=== PATIENT | female | born 1970 | race Caucasian/White ===

== ENCOUNTER 2016-11-20 23:56 | Emergency (ER) | payer OTHER ==
[2016-11-21 00:22] VITALS: BP 151/89; PULSE 70; TEMP 98.3; BMI 30.6
[2016-11-21] MEDS ORDERED: KETOROLAC TROMETHAMINE 60 MG/2 ML VIAL IM ONE (01:02)
[2016-11-21] MEDS ORDERED: KETOROLAC TROMETHAMINE 60 MG/2 ML VIAL ONE (01:12)
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
== END 2016-11-21 02:51 | disposition home or self-care (01) ==
LOC: JER 23:56
PROC: 3E0233Z Introduction of Anti-inflammatory into Muscle, Percutaneous Approach (ICD-10-PCS; principal; 2016-11-20)
DX: M62.838 Other muscle spasm (principal); V43.52XA Car driver injured in collision with other type car in traffic accident, initial encounter; Y92.488 Other paved roadways as the place of occurrence of the external cause; Y93.89 Activity, other specified; Y99.8 Other external cause status
CPT/HCPCS: 73130-TC-LT; 73562-TC-LT; 73630-TC-RT; 99283-25

== ENCOUNTER 2017-01-11 02:25 | Emergency (ER) | payer OTHER ==
[2017-01-11 02:35] VITALS: BP 139/80; PULSE 66; TEMP 98.7; BMI 30.6
[2017-01-11] MEDS ORDERED: KETOROLAC TROMETHAMINE 60 MG/2 ML VIAL ONE (02:41)
[2017-01-11] MEDS ORDERED: METOCLOPRAMIDE HCL 10 MG TABLET (FP) PO ONE ×2 (02:42→02:47)
[2017-01-11] MEDS ORDERED: KETOROLAC TROMETHAMINE 60 MG/2 ML VIAL IM ONE (02:42)
--- NOTE | 2017-01-11 02:43 | PDOC ---
History of Present Illness - General Chief Complaint: Migraine Headache Stated Complaint: MIGRAINE Time Seen by Provider: 01/11/17 02:39 History Source: Patient Exam Limitations: No Limitations - History of Present Illness Initial Comments: 01/11/17 02:39 This is a 46-year-old female comes in complaining of a migraine. Patient said she has a history of migraines but has not seen and later followed up with anybody regarding her migraines and took 2 Tylenols without relief. Patient otherwise is healthy. Patient denies any fevers or chills. Patient says this is her typical migraine. It is left-sided and throbbing. Patient can't remember when the last time she had a migraine. Review of patient's history, she was last seen here on June 2015 for a migraine. She received Toradol at that time. PAST MEDICAL HISTORY: no significant history PAST SURGICAL HISTORY: no significant history FAMILY HISTORY: no pertinant history SOCIAL HISTORY: Pt lives with family and is employed. MEDICATIONS: reviewed ALLERGIES: As per nursing notes Review of Systems General: No fevers or chills, no weakness, no weight loss HEENT: No change in vision. No sore throat,. No ear pain CardioVascular: No chest pain or shortness of breath Respiratory:No cough, or wheezing. Gastrointestinal: no nausea, vomitting, diarrhea or constipation, No rectal bleeding Genitourinary: No dysuria, hematuria, or frequency Musculoskeletal: No joint or muscle pain or swelling Neurologic: No headache, vertigo, dizziness or loss of consciousness Psychiatric: nor depression Skin: No rashes or easy bruising Endocrine: no increased thirst or abnormal weight change Allergic: no skin or latex allergy All other systems reviewed and normal Exam: General: Well-nourished well-developed individual, no acute distress HEENT: Throat: Normal, tonsils normal, no erythema or exudate Neck: Supple, no meningeal signs, no lymphadenopathy Eyes::Pupils equal reactive and round, extraocular motion intact Extremities: Warm, dry, no cyanosis, clubbing, or edema Skin: No rashes Neuro: Alert and oriented x3, nonfocal exam, grossly intact, normal gait Psych: Normal mood and affect Assessment and plan: This is a 38-year-old female who comes in complaining of a migraine. Patient was given 10 mg of Reglan and Toradol and discharged home. Patient was told to follow-up with a neurologist. 01/11/17 02:47 Past History - Past Medical History Allergies/Adverse Reactions: Allergies Allergy/AdvReac Type Severity Reaction Status Date / Time No Known Drug Allergies Allergy Verified 11/21/16 01:10 ANESTHIA Allergy Uncoded 11/21/16 00:10 Home Medications: Ambulatory Orders Acetaminophen [Tylenol] 650 mg PO ONCE 01/11/17 GI Disorders: Yes (GERD) Other medical history: MIGRAINES - Surgical History Neurologic Surgery: Yes (LOW BACK) - Immunization History Immunization Up to Date: Yes - Psycho/Social/Smoking Cessation Hx Anxiety: No Suicidal Ideation: No Smoking Status: No Smoking History: Never smoked Have you smoked in the past 12 months: No Number of Cigarettes Smoked Daily: 0 Hx Alcohol Use: No Drug/Substance Use Hx: No Substance Use Type: None Hx Substance Use Treatment: No *Physical Exam - Vital Signs Last Vital Signs Temp Pulse Resp BP Pulse Ox 98.7 F 66 16 139/80 100 01/11/17 02:31 01/11/17 02:31 01/11/17 02:31 01/11/17 02:01/11/17 02:31 *DC/Admit/Observation/Transfer Diagnosis at time of Disposition: Migraine Qualifiers: Migraine type: unspecified Status migrainosus presence: without status migrainosus Intractability: not intractable Qualified Code(s): G43.909 - Migraine, unspecified, not intractable, without status migrainosus - Discharge Dispostion Disposition: HOME Condition at time of disposition: Stable Admit: No - Referrals Referrals: Perry Leach MD [Primary Care Provider] - - Patient Instructions Additional Instructions: Return to the emergency department immediately with ANY new, persistent or worsening symptoms. Continue any medications as previously prescribed by your physician. You should follow up with your primary doctor as soon as possible regarding today's emergency department visit. . Please make sure your doctor reviews the results of your emergency evaluation. Thank you for coming to the Emergency Department today for your care. It was a pleasure to see you today. Please note that your evaluation is INCOMPLETE until you follow-up with your doctor.
== END 2017-01-11 03:00 | disposition home or self-care (01) ==
LOC: FER 02:25
PROC: 3E0233Z Introduction of Anti-inflammatory into Muscle, Percutaneous Approach (ICD-10-PCS; principal; 2017-01-11)
DX: G43.909 Migraine, unspecified, not intractable, without status migrainosus (principal); K21.9 Gastro-esophageal reflux disease without esophagitis; M54.5 Low back pain
CPT/HCPCS: 96372; 99281-25

== ENCOUNTER 2017-02-19 15:34 | Emergency (ER) | payer OTHER ==
[2017-02-19 15:54] VITALS: BP 155/86; PULSE 82; TEMP 98.5; BMI 30.9
--- NOTE | 2017-02-19 16:06 | PDOC ---
History of Present Illness - History of Present Illness Initial Comments: 02/19/17 17:01 A portion of this note was documented by scribe services under my direction. I have reviewed the details of the note, within reason, and agree with the documentation. The case summary and management plan written by me. Reevaluation: Patient feeling much better, no further vomiting patient resting comfortably. Patient's workup was negative for any acute pathology Patient's EKG showed normal sinus rhythm at a rate of 67, normal intervals no acute ST-T wave changes Patient's blood work was normal Patient discharged home with prescriptions for meclizine and Reglan as there were was a most likely vertigo component to her dizziness <Mayur Blas I - Last Filed: 02/19/17 19:22> - General History Source: Patient Exam Limitations: No Limitations - History of Present Illness Initial Comments: 02/19/17 16:20 The patient is a 46 year old female, who presents to the emergency department with dizziness, Chest pain, and shortness of breath for approximately 2 hours. The patient describes her chest pain as a tightness. She reports associated dizziness, blurry vision, and shortness of breath, but denies any neck pain, diaphoresis, palpitations, or lower extremity edema. She reports some nausea, vomiting, and diarrhea, but denies any abdominal pain, or constipation. She denies any headache, photophobia, fever, or chills. Patient denies any history of anxiety or family history of heart disease. She denies any recent trauma or stressors. She denies any recent travel or sick contacts. PAST MEDICAL HISTORY: Migraines, GERD PAST SURGICAL HISTORY: Lower back surgery. Cholecystectomy FAMILY HISTORY: No pertinent history SOCIAL HISTORY: Pt lives with family and is employed. MEDICATIONS: Reviewed ALLERGIES: As per nursing notes General: No fevers or chills, no weakness, no weight loss HEENT: Yes blurred vision. No sore throat,. No ear pain CardioVascular: Yes chest pain, shortness of breath. Respiratory: No cough, or wheezing. Gastrointestinal: Yes nausea, vomiting, and diarrhea. No constipation, No rectal bleeding Genitourinary: No dysuria, hematuria, or frequency Musculoskeletal: No joint or muscle pain or swelling Neurologic: Yes dizziness. No headache, or loss of consciousness Psychiatric: No depression Skin: No rashes or easy bruising Endocrine: No increased thirst or abnormal weight change Allergic: No skin or latex allergy All other systems reviewed and normal General: Well-nourished well-developed individual. Moderate distress and emesis during exam. Mildly diaphoretic. HEENT: Throat: Normal, tonsils normal, no erythema or exudate Neck: Supple, no meningeal signs, no lymphadenopathy Eyes::Pupils equal reactive and round, extraocular motion intact Chest: Nontender to palpation Cardiac: Tachycardic. S1-S2 normal, regular rhythm, no murmurs rubs or gallops Respiratory: Lungs clear to auscultation bilateral Abdomen: Soft, nondistended, normal bowel sounds, nontender to palpation diffusely Extremities: Warm, dry, no cyanosis, clubbing, or edema Skin: No rashes Neuro: Alert and oriented x3, nonfocal exam, grossly intact, normal gait Psych: Normal mood and affect <Skip Gold - Last Filed: 02/19/17 19:24> - General Chief Complaint: Migraine Headache Stated Complaint: HEADACHE Past History - Past Medical History GI Disorders: Yes (GERD) Other medical history: MIGRAINE - Surgical History Cholecystectomy: Yes Neurologic Surgery: Yes (LOW BACK) - Immunization History Immunization Up to Date: Yes - Suicide/Smoking/Psychosocial Hx Smoking Status: No Smoking History: Never smoked Have you smoked in the past 12 months: No Number of Cigarettes Smoked Daily: 0 Information on smoking cessation initiated: No Hx Alcohol Use: No Drug/Substance Use Hx: No Substance Use Type: None Hx Substance Use Treatment: No <Mayur Blas I - Last Filed: 02/19/17 19:22> <Skip Gold - Last Filed: 02/19/17 19:24> - Past Medical History Allergies/Adverse Reactions: Allergies Allergy/AdvReac Type Severity Reaction Status Date / Time No Known Drug Allergies Allergy Verified 02/19/17 17:37 Home Medications: Ambulatory Orders Aspirin/Acetaminophen/Caffeine [Excedrin Migraine Caplet] 1 each PO PRN PRN Meclizine HCl [Antivert -] 25 mg PO QID PRN #16 tablet 02/19/17 Metoclopramide HCl [Reglan -] 10 mg PO BID PRN #14 tablet 02/19/17 *Physical Exam - Vital Signs Last Vital Signs Temp Pulse Resp BP Pulse Ox 98.5 F 82 20 155/86 99 02/19/17 15:35 02/19/17 15:35 02/19/17 15:35 02/19/17 15:35 02/19/17 15:35 <Mayur Blas I - Last Filed: 02/19/17 19:22> - Vital Signs Last Vital Signs Temp Pulse Resp BP Pulse Ox 98.5 F 82 20 155/86 99 02/19/17 15:35 02/19/17 15:35 02/19/17 15:35 02/19/17 15:35 02/19/17 15:35 <Skip Gold - Last Filed: 02/19/17 19:24> Heart Score/ECG Review - History History: Slightly suspicious - Electrocardiogram EKG: Non specific repolarization disturbance - Age Age: 45-65 - Risk Factors Based on the list above the patient has:: No risk factors known - Troponin Troponin: </= normal limit - Score Heart Score - Total: 2 <Mayur Blas I - Last Filed: 02/19/17 19:22> ED Treatment Course - LABORATORY CBC & Chemistry Diagram: 02/19/17 16:30 02/19/17 16:30 <Mayur Blas I - Last Filed: 02/19/17 19:22> - LABORATORY CBC & Chemistry Diagram: 02/19/17 16:30 02/19/17 16:30 <Skip Gold - Last Filed: 02/19/17 19:24> *DC/Admit/Observation/Transfer - Discharge Dispostion Admit: No <Mayur Blas I - Last Filed: 02/19/17 19:22> - Attestations Scribe Attestion: 02/19/17 16:20 Documentation prepared by Skip Gold, acting as medical receptionist biller for Mayur Blas MD. <Skip Gold - Last Filed: 02/19/17 19:24> Diagnosis at time of Disposition: Nausea vomiting and diarrhea - Discharge Dispostion Disposition: HOME Condition at time of disposition: Improved - Prescriptions Prescriptions: Meclizine HCl [Antivert -] 25 mg PO QID PRN #16 tablet PRN Reason: Vertigo Metoclopramide HCl [Reglan -] 10 mg PO BID PRN #14 tablet PRN Reason: Nausea - Patient Instructions Additional Instructions: For the dizziness/vertigo U can take meclizine 1 tablet as often as 3 times a day. For nausea take the Reglan 1 tablet 2-3 times a day. Return to the emergency department immediately with ANY new, persistent or worsening symptoms. Continue any medications as previously prescribed by your physician. You should follow up with your primary doctor as soon as possible regarding today's emergency department visit. . Please make sure your doctor reviews the results of your emergency evaluation. Thank you for coming to the Emergency Department today for your care. It was a pleasure to see you today. Please note that your evaluation is INCOMPLETE until you follow-up with your doctor.
[2017-02-19] MEDS ORDERED: ASPIRIN 81 MG CHEWABLE TABLETS PO ONE (16:11)
[2017-02-19] MEDS ORDERED: METOCLOPRAMIDE HCL 10 MG TABLET (FP) PO ONE (16:11)
[2017-02-19] MEDS ORDERED: ASPIRIN 325 MG TABLET PO ONE (16:11)
[2017-02-19] MEDS ORDERED: ALPRAZolam 0.25 MG TABLET PO STA (16:12)
[2017-02-19] MEDS ORDERED: SODIUM CHLORIDE 1,000 ML IV ONE (16:17)
[2017-02-19] MEDS ORDERED: KETOROLAC TROMETHAMINE 30 MG/1 ML VIAL IVPUSH ONE (16:19)
[2017-02-19] MEDS ORDERED: ASPIRIN 325 MG TABLET ONE (16:30)
[2017-02-19 16:50] LABS: BASOPHIL 0.4 % (0-2.0); EOSINOPHIL 0.7 % (0-4.5); MCH 30.4 pg (25.7-33.7); MCHC 33.8 g/dl (32.0-36.0); MEAN CELL VOLUME 89.7 fl (80-96); MEAN PLT VOLUME 10.3 fl (7.5-11.1); NEUTROPHILS 58.8 % (42.8-82.8); PLATELET COUNT 197 K/MM3 (134-434); RDW 12.5 % (11.6-15.6); WHITE BLOOD COUNT 6.4 K/mm3 (4.0-10.8)
[2017-02-19 16:59] LABS: ALBUMIN 4.4 g/dl (3.5-5.0); ALK PHOS 46 U/L (32-92); ANION GAP 8 (8-16); BILIRUBIN,TOTAL 0.6 mg/dl (0.2-1.0); CALCIUM 9.2 mg/dl (8.4-10.2); CO2 26 mmol/L (22-28); CREATININE 0.6 mg/dl (0.6-1.3); GLUCOSE,RANDOM 110 mg/dl (74-106); SGOT/AST 31 U/L (10-42); SGPT/ALT 31 U/L (10-40); TOT PROT 7.2 g/dl (6.4-8.3)
[2017-02-19 17:00] LABS: CPK 93 IU/L (26-192)
[2017-02-19 17:10] LABS: TROPONIN I (DFP) < 0.03 ng/ml (0.03-0.50)
[2017-02-19] MEDS ORDERED: MECLIZINE HCL 25 MG TABLET (FP) PO ONE (17:30)
--- NOTE | 2017-02-21 17:29 | EKG ---
Test Reason : Blood Pressure : / mmHG Vent. Rate : 067 BPM Atrial Rate : 067 BPM P-R Int : 182 ms QRS Dur : 090 ms QT Int : 400 ms P-R-T Axes : 062 021 048 degrees QTc Int : 422 ms NORMAL SINUS RHYTHM POSSIBLE LEFT ATRIAL ENLARGEMENT LOW VOLTAGE QRS CANNOT RULE OUT ANTERIOR INFARCT , AGE UNDETERMINED rvcd NO PREVIOUS ECGS AVAILABLE Confirmed by MD CARLSON MARJORY ([id number]) on 02/21/2017 5:29:12 PM Referred By: DR CARIAS Confirmed By:GUILLERMO CARLSON MD
== END 2017-02-19 18:00 | disposition home or self-care (01) ==
LOC: FER 15:34
PROC: 3E0333Z Introduction of Anti-inflammatory into Peripheral Vein, Percutaneous Approach (ICD-10-PCS; principal; 2017-02-19)
PROC: 3E0337Z Introduction of Electrolytic and Water Balance Substance into Peripheral Vein, Percutaneous Approach (ICD-10-PCS; 2017-02-19)
DX: R11.2 Nausea with vomiting, unspecified (principal); R19.7 Diarrhea, unspecified; K21.9 Gastro-esophageal reflux disease without esophagitis
CPT/HCPCS: 36415; 80053; 82550; 83690; 84484; 85025; 93005; 99283-25

== ENCOUNTER 2017-06-05 17:05 | Emergency (ER) | payer OTHER ==
[2017-06-05 17:25] VITALS: BP 133/77; PULSE 76; TEMP 98.5; BMI 29.8
[2017-06-05] MEDS ORDERED: SODIUM CHLORIDE 1,000 ML IV STA (17:39)
[2017-06-05] MEDS ORDERED: ACETAMINOPHEN 1000 MG/100 ML VIAL (NON FORMULARY) IVPB ONE (17:39)
[2017-06-05] MEDS ORDERED: METOCLOPRAMIDE HCL INJECTION 10 MG/2 ML VIAL IVPB ONE (17:39)
[2017-06-05] MEDS ORDERED: ACETAMINOPHEN INJECTION 100 ML IVPB ONE (17:44)
[2017-06-05] MEDS ORDERED: FAMOTIDINE 20 MG/50 ML IVPB 20 MG/50 ML MG IVPB ONE ×2 (17:45→17:50)
[2017-06-05] MEDS ORDERED: MAG HYDROX/AL HYDROX/SIMETH 30 ML UNIT-DOSE CUP PO ONE (17:45)
[2017-06-05] MEDS ORDERED: MAG HYDROX/AL HYDROX/SIMETH 30 ML UNIT-DOSE CUP ONE (17:50)
--- NOTE | 2017-06-05 18:10 | PDOC ---
History of Present Illness <Sterling Sosa - Last Filed: 06/05/17 18:33> - History of Present Illness Initial Comments: 06/05/17 18:07 "The patient is a 46 year old female, with a significant past medical history of migraines, GERD, who presents to the emergency department with, right sided headache beginning approx. 6 hours ago. The patient reports the headache began around 11am and reports taking Aspirin for the headache without relief. The patient reports she then visited her Neurologist and received Ibuprofen for the headache without relief. The patient reports the right sided headache as a pulsating headache with associated photophobia and mild blurry vision. The patient reports the headache is similar to past migraines. Pt states she has been here several times in the past for same symptoms and was given "a shot" that made her pain go away. Pt denies F/C. Denies thunderclap. Denies neck stiffness. Denies double vision. Denies weakness/numbness/tingling in any extremity. Denies dizziness or roomspinning. She denies recent nausea, vomit, diarrhea or constipation. She denies recent dysuria, frequency, urgency or hematuria. She denies recent chest pain or shortness of breath. Allergies: NKA Past surgical history: Lower back surgery. Cholecystectomy. Hysterectomy. Social history: Nonsmoker. Denies EtOH use and recreational drug use. " <Mac Salcedo - Last Filed: 06/08/17 18:12> - General Chief Complaint: Migraine Headache Stated Complaint: MIGRAINE Time Seen by Provider: 06/05/17 17:10 Past History <Sterling Sosa - Last Filed: 06/05/17 18:33> - Past Medical History COPD: No GI Disorders: Yes (GERD) HTN: Yes Other medical history: MIGRAINE - Surgical History Cholecystectomy: Yes Neurologic Surgery: Yes (LOW BACK) - Immunization History Immunization Up to Date: Yes - Suicide/Smoking/Psychosocial Hx Smoking Status: No Smoking History: Never smoked Have you smoked in the past 12 months: No Number of Cigarettes Smoked Daily: 0 Information on smoking cessation initiated: No Hx Alcohol Use: Yes (RARE) Drug/Substance Use Hx: No Substance Use Type: Alcohol Hx Substance Use Treatment: No <Mac Salcedo - Last Filed: 06/08/17 18:12> - Past Medical History Allergies/Adverse Reactions: Allergies Allergy/AdvReac Type Severity Reaction Status Date / Time No Known Drug Allergies Allergy Verified 06/05/17 17:14 Review of Systems - Review of Systems Comments:: 06/05/17 18:09 "GENERAL/CONSTITUTIONAL: No fever or chills. No weakness. HEAD, EYES, EARS, NOSE AND THROAT: +Photophobia. No ear pain or discharge. No sore throat. CARDIOVASCULAR: No chest pain or shortness of breath. RESPIRATORY: No cough, wheezing, or hemoptysis. GASTROINTESTINAL: No nausea, vomiting, diarrhea or constipation. GENITOURINARY: No dysuria, frequency, or change in urination. MUSCULOSKELETAL: No joint or muscle swelling or pain. No neck or back pain. SKIN: No rash NEUROLOGIC: +Headache. No vertigo, loss of consciousness, or change in strength/ sensation. ENDOCRINE: No increased thirst. No abnormal weight change. HEMATOLOGIC/LYMPHATIC: No anemia, easy bleeding, or history of blood clots. ALLERGIC/IMMUNOLOGIC: No hives or skin allergy. " <Mac Salcedo - Last Filed: 06/08/17 18:12> *Physical Exam - Vital Signs Last Vital Signs Temp Pulse Resp BP Pulse Ox 98.5 F 76 16 133/77 98 06/05/17 17:07 06/05/17 17:07 06/05/17 17:07 06/05/17 17:07 06/05/17 17:07 <Sterling Sosa - Last Filed: 06/05/17 18:33> - Vital Signs Last Vital Signs Temp Pulse Resp BP Pulse Ox 98.5 F 76 16 133/77 98 06/05/17 17:07 06/05/17 17:07 06/05/17 17:07 06/05/17 17:07 06/05/17 17:07 - Physical Exam Comments: 06/05/17 18:10 "GENERAL: Awake, alert, and fully oriented, in no acute distress HEAD: No signs of trauma EYES: PERRLA, EOMI, sclera anicteric, conjunctiva clear ENT: Auricles normal inspection, hearing grossly normal, nares patent, oropharynx clear without exudates. Moist mucosa NECK: Nontender, no stepoffs, Normal ROM, supple, no lymphadenopathy, JVD, or masses LUNGS: Breath sounds equal, clear to auscultation bilaterally. No wheezes, and no crackles HEART: Regular rate and rhythm, normal S1 and S2, no murmurs, rubs or gallops ABDOMEN: Soft, nontender, normoactive bowel sounds. No guarding, no rebound. No masses EXTREMITIES: Normal range of motion, no edema. No clubbing or cyanosis. No cords, erythema, or tenderness NEUROLOGICAL: Cranial nerves II through XII intact. 5/5 strength and sensation in all extremities, Normal speech, normal gait SKIN: Warm, Dry, normal turgor, no rashes or lesions noted. " <Ou,Mac - Last Filed: 06/08/17 18:12> ED Treatment Course - Medications Given in the ED: ED Medications Discontinued Medications Generic Name Dose Route Start Last Admin Trade Name Freq PRN Reason Stop Dose Admin Acetaminophen 1,000 mg 06/05/17 17:39 06/05/17 18:29 Ofirmev Injection - IVPB 06/05/17 17:40 1,000 mg ONCE ONE Administration Al Hydroxide/Mg Hydroxide 30 ml 06/05/17 17:45 06/05/17 17:57 Mylanta Oral Suspension - PO 06/05/17 17:46 30 ml ONCE ONE Administration Famotidine/Sodium Chloride 20 mg in 50 mls @ 100 mls/hr 06/05/17 17:45 18:12 Pepcid 20 Mg Premixed Ivpb - IVPB 06/05/17 18:14 100 mls/hr ONCE ONE Administration Metoclopramide HCl 10 mg 06/05/17 17:39 06/05/17 18:09 Reglan Injection - IVPB 06/05/17 17:40 10 mg ONCE ONE Administration <Sterling Sosa - Last Filed: 06/05/17 18:33> - Medications Given in the ED: ED Medications Discontinued Medications Generic Name Dose Route Start Last Admin Trade Name Freq PRN Reason Stop Dose Admin Al Hydroxide/Mg Hydroxide 30 ml 06/05/17 17:45 06/05/17 17:57 Mylanta Oral Suspension - PO 06/05/17 17:46 30 ml ONCE ONE Administration <Ou,Mac - Last Filed: 06/08/17 18:12> Medical Decision Making - Medical Decision Making 06/05/17 18:10 46 F with headache, consistent with prior migraine headaches. No s/s of serious intracranial pathology. - Tylenol, reglan, IVF 06/05/17 19:01 Pt reassessed s/p meds. Now feels much better. Pt well appearing, vitals normal, clinically stable for DC. I discussed the physical exam findings, ancillary test results and final diagnoses with the patient. I answered all of the patient's questions. The patient was satisfied with the care received and felt comfortable with the discharge plan and treatment plan. The patient agrees to follow up with the primary care physician within 24-72 hours. <Mac Salcedo - Last Filed: 06/08/17 18:12> *DC/Admit/Observation/Transfer - Attestations Scribe Attestion: 06/05/17 18:38 Documentation prepared by Sterling Sosa, acting as medical appointment clerk for Mac Salcedo MD. <Sterling Sosa - Last Filed: 06/05/17 18:33> - Attestations Physician Attestion: 06/05/17 19:02 I, Dr. Mac Salcedo MD, attest that this document has been prepared under my direction and personally reviewed by me in its entirety. I further attest, that it accurately reflects all work, treatment, procedures and medical decision -making performed by me. <Mac Salcedo - Last Filed: 06/08/17 18:12> Diagnosis at time of Disposition: Migraine - Discharge Dispostion Disposition: HOME Condition at time of disposition: Stable - Patient Instructions Printed Discharge Instructions: DI for Migraine Additional Instructions: Follow up with your neurologist within 1 week for further management of your migraines. If you experience worsening headache, vomiting, fevers, neck stiffness, or any other concerning symptoms, return to the ER immediately.
== END 2017-06-05 19:14 | disposition home or self-care (01) ==
LOC: FER 17:05
DX: G43.909 Migraine, unspecified, not intractable, without status migrainosus (principal); K21.9 Gastro-esophageal reflux disease without esophagitis; I10 Essential (primary) hypertension
CPT/HCPCS: 99282-25

== ENCOUNTER 2018-04-02 13:09 | Emergency (ER) | payer OTHER ==
--- NOTE | 2018-04-02 13:24 | PDOC ---
History of Present Illness - General Chief Complaint: Revisit, Lab Variance Stated Complaint: SENT BY PMD CALCIUM LOW Time Seen by Provider: 04/02/18 13:13 - History of Present Illness Initial Comments: 04/02/18 13:31 Ms. Garrison is a 47 yo female w/ pmh of HTN, fibroids s/p uterine resection, s/p cholecystectomy who presents for evaluation on advice of PCP. Per patient she had routine labs done last week which showed elevated liver labs. Upon repeat draw this morning she was told liver labs were fine however her calcium was very low and to report to ER. She currently has no complaints at this time although is anxious about her low calcium. The patient denies chest pain, shortness of breath, headache and dizziness. Denies fever, chills, nausea, vomit, diarrhea and constipation. Denies dysuria, frequency, urgency and hematuria. Past History - Past Medical History Allergies/Adverse Reactions: Allergies Allergy/AdvReac Type Severity Reaction Status Date / Time Anesthetics - Amide Type Allergy Severe Difficulty Verified 04/02/18 13:15 Breathing Anesthetics - Joslyn Type- Allergy Severe Difficulty Verified 04/02/18 13:15 Parabens Breathing No Known Drug Allergies Allergy Verified 04/02/18 13:14 Home Medications: Ambulatory Orders Aspirin 81 mg PO DAILY 04/02/18 Triamterene/Hydrochlorothiazid [Triamterene-Hctz 37.5-25 mg Tb] 1 tab PO DAILY 04/02/18 Cardiac Disorders: No CVA: No COPD: No CHF: No Diabetes: No GI Disorders: Yes (GERD) HTN: Yes Hypercholesterolemia: No - Surgical History Cardiac Surgery: No Cholecystectomy: Yes Neurologic Surgery: Yes (LOW BACK) - Family Disease History Family Disease History: Heart Disease: Father ([place]), Mother ([place]) - Immunization History Immunization Up to Date: Yes - Suicide/Smoking/Psychosocial Hx Smoking Status: No Smoking History: Never smoked Have you smoked in the past 12 months: No Number of Cigarettes Smoked Daily: 0 Hx Alcohol Use: No Drug/Substance Use Hx: No Substance Use Type: Alcohol Hx Substance Use Treatment: No Review of Systems - Review of Systems Comments:: 04/02/18 13:34 GENERAL/CONSTITUTIONAL: No fever or chills. No weakness. HEAD, EYES, EARS, NOSE AND THROAT: No change in vision. No ear pain or discharge. No sore throat. CARDIOVASCULAR: No chest pain or shortness of breath RESPIRATORY: No cough, wheezing, or hemoptysis. GASTROINTESTINAL: No nausea, vomiting, diarrhea or constipation. GENITOURINARY: No dysuria, frequency, or change in urination. MUSCULOSKELETAL: No joint or muscle swelling or pain. No neck or back pain. SKIN: No rash NEUROLOGIC: No headache, vertigo, loss of consciousness, or change in strength/ sensation. ENDOCRINE: No increased thirst. No abnormal weight change HEMATOLOGIC/LYMPHATIC: No anemia, easy bleeding, or history of blood clots. ALLERGIC/IMMUNOLOGIC: No hives or skin allergy. *Physical Exam - Physical Exam Comments: 04/02/18 13:35 GENERAL: Awake, alert, and fully oriented, in no acute distress HEAD: No signs of trauma, normocephalic, atraumatic EYES: PERRLA, EOMI, sclera anicteric, conjunctiva clear ENT: Auricles normal inspection, hearing grossly normal, nares patent, oropharynx clear without exudates. Moist mucosa NECK: Normal ROM, supple, no lymphadenopathy, JVD, or masses LUNGS: No distress, speaks full sentences, clear to auscultation bilaterally HEART: Regular rate and rhythm, normal S1 and S2, no murmurs, rubs or gallops, peripheral pulses normal and equal bilaterally. ABDOMEN: Soft, nontender, normoactive bowel sounds. No guarding, no rebound. No masses EXTREMITIES: Normal inspection, Normal range of motion, no edema. No clubbing or cyanosis. NEUROLOGICAL: Cranial nerves II through XII grossly intact. Normal speech, normal gait, no focal sensorimotor deficits SKIN: Warm, Dry, normal turgor, no rashes or lesions noted. ED Treatment Course - LABORATORY CBC & Chemistry Diagram: 04/02/18 13:39 04/02/18 13:39 Medical Decision Making - Medical Decision Making 04/02/18 13:35 Ms. Garrison is a 47 yo female w/ pmh as described who presents for evaluation on advice of PCP. Patient currently feels well and has no complaints. Will repeat labs for confirmation of lab abnormality. 04/02/18 14:43 Labs grossly unconcerning as below. Discharging patient for further outpatient evaluation. Laboratory Results - last 24 hr 04/02/18 04/02/18 13:39 13:39 WBC 6.7 RBC 4.82 Hgb 14.5 Hct 43.7 MCV 90.5 MCH 30.1 MCHC 33.3 RDW 12.1 Plt Count 227 MPV 9.4 Absolute Neuts (auto) 4.8 Neutrophils % 71.7 Lymphocytes % 24.7 Monocytes % 3.2 L Eosinophils % 0.2 Basophils % 0.2 Sodium 137 Potassium 3.9 Chloride 102 Carbon Dioxide 28 Anion Gap 7 L BUN 10 Creatinine 0.6 Creat Clearance w eGFR > 60 Random Glucose 88 Calcium 9.6 Phosphorus 4.1 Total Bilirubin 0.5 AST 31 ALT 32 Alkaline Phosphatase 57 Total Protein 7.4 Albumin 4.4 *DC/Admit/Observation/Transfer Diagnosis at time of Disposition: Abnormal laboratory test - Discharge Dispostion Disposition: HOME Condition at time of disposition: Stable - Referrals - Patient Instructions Additional Instructions: You were evaluated today in the ER for your lab changes noted at your primary care provider (low calcium). Repeat calcium value was 9.6. No other concerning findings were found at this time. Please follow-up with primary care provider in 1-2 days for further evaluation. Return to ER if any fever, chills, pain, or other concerning symptoms. - Post Discharge Activity
[2018-04-02 13:25] VITALS: BP 148/94; PULSE 80; TEMP 98.4; BMI 29.0
--- NOTE | 2018-04-02 13:31 | PDOC ---
Attending Attestation - Resident Resident Name: Niraj Irwin - ED Attending Attestation I have performed the following: I have examined & evaluated the patient, The case was reviewed & discussed with the resident, I agree w/resident's findings & plan, Exceptions are as noted - HPI HPI: 04/02/18 13:54 Ms Garrison is a 47 yo F h/o HTN who was referred to the ER for repeat evaluation of her blood tests She was seen as an outpatient approximately 3 weeks ago, LFTs were reportedly abnormal Pt was told to return for repeat labs which she did today. Calcium was 6.2 Pt denies twitching, perioral numbness, weakness 04/02/18 14:20 - Physicial Exam PE: 04/02/18 13:54 GENERAL: The patient is in no acute distress. EYES: PERRLA, EOMI, sclera anicteric, conjunctiva clear. ENT: Ears normal, nares patent, oropharynx clear without exudates. Moist mucous membranes. LUNGS: Breath sounds equal, clear to auscultation bilaterally. No wheezes, and no crackles. HEART:Regular rate and rhythm, normal S1 and S2 without murmur, rub or gallop. ABDOMEN: Soft, nontender, normoactive bowel sounds. No guarding, no rebound. No masses palpable. EXTREMITIES: Normal range of motion, no edema. No clubbing or cyanosis. No erythema, or tenderness. NEUROLOGICAL: Cranial nerves II through XII grossly intact. Normal speech. No focal neurological deficits. 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
[2018-04-02 14:13] LABS: BASO % 0.2 % (0-2.0); EOS % 0.2 % (0-4.5); HEMATOCRIT 43.7 % (32.4-45.2); HEMOGLOBIN 14.5 GM/dl (10.7-15.3); LYMPH % 24.7 % (8-40); MCH 30.1 pg (25.7-33.7); MCHC 33.3 g/dl (32.0-36.0); MEAN CELL VOLUME 90.5 fl (80-96); MEAN PLT VOLUME 9.4 fl (7.5-11.1); MONO % 3.2 % (3.8-10.2); NEUT % 71.7 % (42.8-82.8); PLATELET COUNT 227 K/MM3 (134-434); RBC 4.82 M/mm3 (3.60-5.2); RDW 12.1 % (11.6-15.6); WHITE BLOOD COUNT 6.7 K/mm3 (4.0-10.8)
[2018-04-02 14:22] LABS: ALBUMIN 4.4 g/dl (3.5-5.0); ALK PHOS 57 U/L (32-92); ANION GAP 7 MMOL/L (8-16); BILIRUBIN,TOTAL 0.5 mg/dl (0.2-1.0); BLOOD UREA NITROGEN 10 mg/dl (7-18); CALCIUM 9.6 mg/dl (8.4-10.2); CHLORIDE 102 mmol/L (98-107); CO2 28 mmol/L (22-28); CREATININE 0.6 mg/dl (0.6-1.3); GLUCOSE,RANDOM 88 mg/dl (74-106); PHOSPHOROUS 4.1 mg/dl (2.5-4.6); POTASSIUM 3.9 mmol/L (3.5-5.1); SGOT/AST 31 U/L (10-42); SGPT/ALT 32 U/L (10-40); SODIUM 137 mmol/L (136-145); TOT PROT 7.4 g/dl (6.4-8.3)
== END 2018-04-02 14:49 | disposition home or self-care (01) ==
LOC: FER 13:09
DX: R79.9 Abnormal finding of blood chemistry, unspecified (principal); K21.9 Gastro-esophageal reflux disease without esophagitis; I10 Essential (primary) hypertension
CPT/HCPCS: 36415; 80053; 82330; 84100; 85025; 99281-25

== ENCOUNTER 2018-05-24 17:10 | Emergency (ER) | payer OTHER ==
[2018-05-24] MEDS ORDERED: ASPIRIN 325 MG TABLET PO ONE (17:20)
[2018-05-24] MEDS ORDERED: ASPIRIN 325 MG TABLET ONE (17:29)
[2018-05-24] MEDS ORDERED: diazePAM 5 MG TABLET PO ONE (17:32)
[2018-05-24] MEDS ORDERED: SODIUM CHLORIDE 0.9% 1000 ML INFUS.BAG IV ONE (17:32)
--- NOTE | 2018-05-24 17:32 | PDOC ---
History of Present Illness - General Chief Complaint: Chest Pain Stated Complaint: MIGRAINE HEADACHE, CHEST PAIN Time Seen by Provider: 05/24/18 17:13 History Source: Patient Exam Limitations: No Limitations - History of Present Illness Initial Comments: 05/24/18 17:25 47 yo F with h/o migraines, gerd here with c/o headache started today. pt states she has left sided trapezial pain and spasm also co headache. does get frequent migraines this is similar to previous. sees dr. frances was given medication unsure of name. following headache getting better but c/o burning chest discomfort. no new weakness does have tingling in her right arm. no sob no palpitations. did have a cardiac work up over one year ago [facility] stress test which was normal ( dr. talley) . family h/o mother [place] in 70's and father [place] in 90s. per compa on [place] sumatriptan 50mg is pt medication. Past History - Past Medical History Allergies/Adverse Reactions: Allergies Allergy/AdvReac Type Severity Reaction Status Date / Time Anesthetics - Amide Type Allergy Severe Difficulty Verified 04/02/18 13:15 Breathing Anesthetics - Joslyn Type- Allergy Severe Difficulty Verified 04/02/18 13:15 Parabens Breathing No Known Drug Allergies Allergy Verified 04/02/18 13:14 Home Medications: Ambulatory Orders Aspirin 81 mg PO DAILY 04/02/18 Triamterene/Hydrochlorothiazid [Triamterene-Hctz 37.5-25 mg Tb] 1 tab PO DAILY 04/02/18 Sumatriptan Succinate [Imitrex -] 50 mg PO ONCE 05/24/18 Cardiac Disorders: No CVA: No COPD: No CHF: No Diabetes: No GI Disorders: Yes (GERD) HTN: Yes Hypercholesterolemia: No Other medical history: MIGRAINE HEADACHES - Surgical History Cardiac Surgery: No Cholecystectomy: Yes Neurologic Surgery: Yes (LOW BACK) - Family Disease History Family Disease History: Heart Disease: Father ([place]), Mother ([place]) - Immunization History Immunization Up to Date: Yes - Suicide/Smoking/Psychosocial Hx Smoking Status: No Smoking History: Never smoked Have you smoked in the past 12 months: No Number of Cigarettes Smoked Daily: 0 Information on smoking cessation initiated: No Hx Alcohol Use: No Drug/Substance Use Hx: No Substance Use Type: Alcohol Hx Substance Use Treatment: No Review of Systems - Review of Systems Constitutional: No: Chills, Diaphoresis Respiratory: No: Cough, Orthopnea Cardiac (ROS): Yes: Chest Pain ABD/GI: No: Abdominal Distended : No: Burning, Dysuria Neurological: Yes: Headache, Numbness, Paresthesia All Other Systems: Reviewed and Negative *Physical Exam - Vital Signs Last Vital Signs Temp Pulse Resp BP Pulse Ox 98.4 F 82 18 134/89 100 05/24/18 17:10 05/24/18 17:10 05/24/18 17:10 05/24/18 17:10 05/24/18 17:10 - Physical Exam Comments: 05/24/18 17:29 awake alert lungs clear bilaterally heart rrr no mrg left trapezial spasm, no weakness all four ext. chest wall ttp. abd soft nt nd. xt wwp no edema. no calf tenderness. Moderate Sedation - Procedure Monitoring Vital Signs: Procedure Monitoring Vital Signs Temperature 98.4 F 05/24/18 17:10 Pulse Rate 82 05/24/18 17:10 Respiratory Rate 18 05/24/18 17:10 Blood Pressure 134/89 05/24/18 17:10 O2 Sat by Pulse Oximetry (%) 100 05/24/18 17:10 Heart Score/ECG Review #1 General ECG Interpretation: Sinus Rhythm, Normal Rate (83), Normal Intervals, No acute ischemic changes ED Treatment Course - LABORATORY CBC & Chemistry Diagram: 05/24/18 17:40 05/24/18 17:40 - RADIOLOGY Radiology Studies Ordered: Category Date Time Status CHEST PA & LAT [RAD] Stat Radiology 05/24/18 17:20 Ordered Medical Decision Making - Medical Decision Making 05/24/18 17:30 differential migraine headache. tension headache. vasospasm from sumatriptan mi . plan labs cmp ekg treat migraine. valium and reglan, asa for acs. reassess. 05/24/18 18:54 pt feels improved. labs unremarkable. no longer having chest pain or headache. instructed she should no longer take sumatriptan due to possible side effect of angina and vasospasm. will repeat trop at 4 hrs. . 05/24/18 18:57 pt signed out to Dr Mclain awaiting repeat troponin. at 8:50 pm. if negative dc home fu outpt cardiology. discontinue outpt sumatriptan. *DC/Admit/Observation/Transfer Diagnosis at time of Disposition: Migraine, Chest pain, Medication side effect - Discharge Dispostion Condition at time of disposition: Stable - Referrals Referrals: Perry Leach MD [Primary Care Provider] - Can Frances MD [Staff Physician] - Lior Talley MD [Staff Physician] - - Patient Instructions Printed Discharge Instructions: Migraine -- Adult, DI for Atypical Chest Pain, Sumatriptn Additional Instructions: you should not take sumatriptan for your migraines any longer as it can cause chest pain and heart attacks. your labs are unremarkable. your EKG is normal. please follow up with dr talley your director of quality improvement. call to schedule. you should also follow up with DR Leach. - Post Discharge Activity
[2018-05-24 17:33] VITALS: BP 134/89; PULSE 82; TEMP 98.4; BMI 30.2
[2018-05-24] MEDS ORDERED: METOCLOPRAMIDE HCL INJECTION 10 MG/2 ML VIAL IVPUSH ONE (17:33)
[2018-05-24] MEDS ORDERED: diazePAM 5 MG TABLET ONE (17:49)
[2018-05-24] MEDS ORDERED: METOCLOPRAMIDE HCL INJECTION 10 MG/2 ML VIAL ONE (17:49)
[2018-05-24 17:57] LABS: BASO % 1.3 % (0-2.0); EOS % 0.7 % (0-4.5); HEMATOCRIT 42.8 % (32.4-45.2); HEMOGLOBIN 14.6 GM/dl (10.7-15.3); MCH 30.5 pg (25.7-33.7); MCHC 34.1 g/dl (32.0-36.0); MEAN CELL VOLUME 89.5 fl (80-96); MEAN PLT VOLUME 9.4 fl (7.5-11.1); MONO % 4.9 % (3.8-10.2); NEUT % 67.1 % (42.8-82.8); PLATELET COUNT 196 K/MM3 (134-434); RBC 4.78 M/mm3 (3.60-5.2); RDW 11.7 % (11.6-15.6); WHITE BLOOD COUNT 7.8 K/mm3 (4.0-10.8)
[2018-05-24 18:17] LABS: ALBUMIN 4.5 g/dl (3.5-5.0); ALK PHOS 66 U/L (32-92); ANION GAP 9 MMOL/L (8-16); BILIRUBIN,TOTAL 0.4 mg/dl (0.2-1.0); BLOOD UREA NITROGEN 8 mg/dl (7-18); CALCIUM 9.8 mg/dl (8.4-10.2); CHLORIDE 99 mmol/L (98-107); CO2 29 mmol/L (22-28); CREATININE 0.7 mg/dl (0.6-1.3); GLUCOSE,RANDOM 95 mg/dl (74-106); POTASSIUM 3.8 mmol/L (3.5-5.1); SGOT/AST 39 U/L (10-42); SGPT/ALT 36 U/L (10-40); SODIUM 137 mmol/L (136-145); TOT PROT 7.7 g/dl (6.4-8.3)
--- NOTE | 2018-05-25 19:38 | EKG ---
Test Reason : Blood Pressure : / mmHG Vent. Rate : 083 BPM Atrial Rate : 083 BPM P-R Int : 188 ms QRS Dur : 090 ms QT Int : 378 ms P-R-T Axes : 065 017 046 degrees QTc Int : 444 ms NORMAL SINUS RHYTHM NORMAL ECG WHEN COMPARED WITH ECG OF 05-NOV-2017 20:51, NO SIGNIFICANT CHANGE WAS FOUND Confirmed by RIAN VELEZ MD ([id number]) on 05/25/2018 7:38:28 PM Referred By: GLENNA CALDWELL Confirmed By:RIAN VELEZ MD
== END 2018-05-24 21:48 | disposition home or self-care (01) ==
LOC: FER 17:10
PROC: 3E0337Z Introduction of Electrolytic and Water Balance Substance into Peripheral Vein, Percutaneous Approach (ICD-10-PCS; principal; 2018-05-24)
DX: G43.909 Migraine, unspecified, not intractable, without status migrainosus (principal); R07.9 Chest pain, unspecified; T50.905A Adverse effect of unspecified drugs, medicaments and biological substances, initial encounter; Y92.89 Other specified places as the place of occurrence of the external cause; K21.9 Gastro-esophageal reflux disease without esophagitis; I10 Essential (primary) hypertension
CPT/HCPCS: 36415; 71046-TC-FY; 80053; 82550; 84484; 85025; 93005; 99284-25; J7030

== ENCOUNTER 2019-05-16 18:55 | Emergency (ER) | payer OTHER ==
[2019-05-16 19:11] VITALS: BP 102/69; PULSE 90; TEMP 100; BMI 30.4
--- NOTE | 2019-05-16 19:38 | PDOC ---
Documentation entered by Betzy Morales SCRIBE, acting as scribe for Mayur Blas MD. Mayur Blas MD: This documentation has been prepared by the glennaibe, Betzy Morales SCRIBE, under my direction and personally reviewed by me in its entirety. I confirm that the documentation accurately reflects all work , treatment, procedures, and medical decision making performed by me. History of Present Illness - General Chief Complaint: Cold Symptoms Stated Complaint: COLD SYMPTOMS History Source: Patient Exam Limitations: No Limitations - History of Present Illness Initial Comments: 05/16/19 19:36 The patient is a 48-year-old female who presents to the emergency department with cold symptoms. The patient presents with 2 weeks of subjective fever associated with chills last night and productive cough with yellow sputum production and pain with coughing. The patient reports she has been taking OTC medication and lemon, honey tea for the symptoms, without relief. PAST MEDICAL HISTORY: HTN PAST SURGICAL HISTORY: Uterine resection and cholecystectomy FAMILY HISTORY: no pertinent history SOCIAL HISTORY: Pt lives with family and is employed. MEDICATIONS: reviewed ALLERGIES: As per nursing notes PCP: Dr. Jaspreet Leach Review of system: General: +fever and chills. no weakness, no weight loss HEENT: No change in vision. No sore throat,. No ear pain CardioVascular: No chest pain or shortness of breath Respiratory: +cough. no wheezing. Gastrointestinal: no nausea, vomiting, diarrhea or constipation, No rectal bleeding Genitourinary: No dysuria, hematuria, or frequency Musculoskeletal: No joint or muscle pain or swelling Neurologic: No headache, vertigo, dizziness or loss of consciousness Psychiatric: nor depression Skin: No rashes or easy bruising Endocrine: no increased thirst or abnormal weight change Allergic: no skin or latex allergy All other systems reviewed and normal Physical exam: General: Well-nourished well-developed individual, no acute distress HEENT: +Tenderness on palpation over the maxillary sinuses. +nasal congestion with clear nasal discharge. Throat: Normal, tonsils normal, no erythema or exudate Neck: Supple, no meningeal signs, no lymphadenopathy Eyes :Pupils equal reactive and round, extraocular motion intact Chest: Nontender to palpation Cardiac: S1-S2 normal, regular rate and rhythm, no murmurs rubs or gallops Respiratory: Lungs clear to auscultation bilateral Extremities: Warm, dry, no cyanosis, clubbing, or edema Skin: No rashes Neuro: Alert and oriented x3, nonfocal exam, grossly intact, normal gait Psych: Normal mood and affect Assessment and plan: This is a 48-year-old female comes in complaining of 2 and half weeks of upper respiratory tract type symptoms. Patient is also complaining of a low-grade fever and productive cough. Patient on exam did have tenderness over her frontal sinuses. Patient's lungs were otherwise clear. Patient started on Z-Wyatt for probable sinusitis and if there is any early bronchitis or pneumonia will also cover that. Patient discharged home and will follow up with her primary care doctor. 05/16/19 20:06 Past History - Past Medical History Allergies/Adverse Reactions: Allergies Allergy/AdvReac Type Severity Reaction Status Date / Time Anesthetics - Amide Type Allergy Severe Difficulty Verified 04/02/18 13:15 Breathing Anesthetics - Joslyn Type- Allergy Severe Difficulty Verified 04/02/18 13:15 Parabens Breathing No Known Drug Allergies Allergy Verified 04/02/18 13:14 Home Medications: Ambulatory Orders Azithromycin 250 mg PO DAILY #4 tablet 05/16/19 Cardiac Disorders: No CVA: No COPD: No CHF: No Diabetes: No GI Disorders: Yes (GERD) HTN: Yes Hypercholesterolemia: No - Surgical History Cardiac Surgery: No Cholecystectomy: Yes Neurologic Surgery: Yes (LOW BACK) - Immunization History Immunization Up to Date: Yes - Psycho Social/Smoking Cessation Hx Smoking Status: No Smoking History: Never smoked Have you smoked in the past 12 months: No Number of Cigarettes Smoked Daily: 0 Hx Alcohol Use: No Drug/Substance Use Hx: No Substance Use Type: Alcohol Hx Substance Use Treatment: No *Physical Exam - Vital Signs Last Vital Signs Temp Pulse Resp BP Pulse Ox 100 F H 90 16 102/69 97 05/16/19 19:00 05/16/19 19:00 05/16/19 19:00 05/16/19 19:00 05/16/19 19:00 Discharge - Discharge Information Problems reviewed: Yes Clinical Impression/Diagnosis: Viral upper respiratory illness Sinusitis Qualifiers: Sinusitis location: maxillary Chronicity: acute Recurrence: non-recurrent Qualified Code(s): J01.00 - Acute maxillary sinusitis, unspecified Condition: Stable Disposition: HOME - Admission No - Additional Discharge Information Prescriptions: Azithromycin 250 mg PO DAILY #4 tablet - Follow up/Referral Referrals: Perry Leach MD [Primary Care Provider] - - Patient Discharge Instructions Additional Instructions: Take azithromycin 1 tablet a day for the next 4 days you are given the first dose tonight so take your next dose tomorrow night. Purchase a humidifier and use a humidifier in your room it will help you breathe. Return to the emergency department immediately with ANY new, persistent or worsening symptoms. Continue any medications as previously prescribed by your physician. You should follow up with your primary doctor as soon as possible regarding today's emergency department visit. . Please make sure your doctor reviews the results of your emergency evaluation. Thank you for coming to the Emergency Department today for your care. It was a pleasure to see you today. Please note that your evaluation is INCOMPLETE until you follow-up with your doctor. - Post Discharge Activity
[2019-05-16] MEDS ORDERED: AZITHROMYCIN 500 MG TABLET PO ONE (19:39)
[2019-05-16] MEDS ORDERED: AZITHROMYCIN 250 MG TABLET ONE (19:42)
== END 2019-05-16 19:44 | disposition home or self-care (01) ==
LOC: FER 18:55
DX: J01.00 Acute maxillary sinusitis, unspecified (principal); Z88.8 Allergy status to other drugs, medicaments and biological substances; K21.9 Gastro-esophageal reflux disease without esophagitis; I10 Essential (primary) hypertension
CPT/HCPCS: 99282-25

== ENCOUNTER 2020-11-02 07:19 | Emergency (ER) | payer OTHER ==
[2020-11-02 07:25] VITALS: TEMP 98; BMI 31.4
[2020-11-02] MEDS ORDERED: LACTATED RINGERS SOLUTION 1000 ML INFUS.BAG IV ONE (08:11)
[2020-11-02 08:47] LABS: BASO % 0.9 % (0-2.0); EOS % 1.1 % (0-4.5); HEMOGLOBIN 13.1 GM/dL (10.7-15.3); MCH 30.4 pg (25.7-33.7); MCHC 33.7 g/dl (32.0-36.0); MEAN CELL VOLUME 90.2 fl (80-96); MEAN PLT VOLUME 9.3 fl (7.5-11.1); MONO % 4.9 % (3.8-10.2); NEUT % 65.1 % (42.8-82.8); PLATELET COUNT 163 10^3/uL (134-434); RBC 4.33 M/mm3 (3.60-5.2); RDW 12.7 % (11.6-15.6); WHITE BLOOD COUNT 4.1 K/mm3 (4.0-10.0)
[2020-11-02 09:01] VITALS: BP 112/62; PULSE 88
[2020-11-02 09:53] LABS: INR 0.97 (0.83-1.09); PROTHROMBIN TIME (PATIENT) 11.7 SEC (9.7-13.0)
[2020-11-02 09:56] LABS: ACTIVATED PTT 30.1 SECONDS (25.2-36.5)
[2020-11-02 10:04] LABS: CHLORIDE 106 mmol/L (98-107); SODIUM 139 mmol/L (136-145)
[2020-11-02 10:07] LABS: ALBUMIN 3.8 g/dl (3.4-5.0); ANION GAP 5 MMOL/L (8-16); BLOOD UREA NITROGEN 7.4 mg/dL (7-18); CO2 28 mmol/L (21-32); GLUCOSE,RANDOM 98 mg/dL (74-106); MAGNESIUM 1.9 mg/dL (1.8-2.4)
[2020-11-02 10:10] LABS: SGOT/AST 19 U/L (15-37); SGPT/ALT 27 U/L (13-61)
[2020-11-02 10:11] LABS: BILIRUBIN,TOTAL 0.3 mg/dL (0.2-1); TOT PROT 6.6 g/dl (6.4-8.2)
[2020-11-02 10:12] LABS: ALK PHOS 50 U/L (45-117)
[2020-11-02 10:23] LABS: CREATININE 0.6 mg/dL (0.55-1.3)
== END 2020-11-02 14:03 | disposition home or self-care (01) ==
LOC: JER 07:19
DX: R00.2 Palpitations (principal); R07.9 Chest pain, unspecified; I10 Essential (primary) hypertension
CPT/HCPCS: 36415; 71045-TC-FY; 80053; 82550; 83735; 84443; 84484; 84703; 85025; 85610; 85730; 93005; 93010; 99285-25

== ENCOUNTER 2021-03-07 08:11 | Emergency (ER) | payer OTHER ==
[2021-03-07 08:37] VITALS: BP 130/76; PULSE 80; TEMP 98.8; BMI 28.7
== END 2021-03-07 09:14 | disposition home or self-care (01) ==
LOC: FER 08:11
DX: I10 Essential (primary) hypertension (principal)
CPT/HCPCS: 99281-25

== ENCOUNTER 2021-06-14 20:51 | Emergency (ER) | payer OTHER ==
[2021-06-14 20:56] VITALS: BP 124/75; PULSE 78; TEMP 97.8; BMI 29.5
[2021-06-14] MEDS ORDERED: METOCLOPRAMIDE HCL INJECTION 10 MG/2 ML VIAL IVPUSH ONE (21:21)
[2021-06-14] MEDS ORDERED: SODIUM CHLORIDE 0.9% 1000 ML INFUS.BAG IV ONE ×2 (21:21→21:22)
[2021-06-14] MEDS ORDERED: ACETAMINOPHEN 1000 MG/100 ML BAG IVPB ONE (21:23)
[2021-06-14] MEDS ORDERED: METOCLOPRAMIDE HCL INJECTION 10 MG/2 ML VIAL ONE (21:40)
[2021-06-14] MEDS ORDERED: ACETAMINOPHEN INJECTION 100 ML IVPB ONE (21:40)
[2021-06-14 21:56] LABS: ALBUMIN 4.3 g/dl (3.4-5.0); ALK PHOS 48 U/L (45-117); ANION GAP 11 MMOL/L (8-16); BILIRUBIN,TOTAL 0.9 mg/dl (0.2-1); CALCIUM 9.7 mg/dl (8.5-10); CHLORIDE 99 mmol/L (98-107); CO2 24 mmol/L (21-32); CREATININE 0.6 mg/dl (0.55-1.3); GLUCOSE,RANDOM 91 mg/dl (74-106); SGOT/AST 27 U/L (15-37); SGPT/ALT 26 U/L (13-61); SODIUM 134 mmol/L (136-145); TOT PROT 6.9 g/dl (6.4-8.2)
[2021-06-14 23:18] LABS: BASO % 0.3 % (0-2.0); EOS % 0.9 % (0-4.5); HEMATOCRIT 39.4 % (32.4-45.2); HEMOGLOBIN 13.4 GM/dL (10.7-15.3); LYMPH % 30.8 % (8-40); MCH 30.2 pg (25.7-33.7); MCHC 34.1 g/dl (32.0-36.0); MEAN CELL VOLUME 88.7 fl (80-96); MEAN PLT VOLUME 9.1 fl (7.5-11.1); MONO % 4.5 % (3.8-10.2); NEUT % 63.5 % (42.8-82.8); PLATELET COUNT 139 10^3/uL (134-434); RBC 4.44 M/mm3 (3.60-5.2); RDW 13.5 % (11.6-15.6); WHITE BLOOD COUNT 5.5 K/mm3 (4.0-10.0)
== END 2021-06-15 03:10 | disposition home or self-care (01) ==
LOC: FER 20:51
PROC: 3E033NZ Introduction of Analgesics, Hypnotics, Sedatives into Peripheral Vein, Percutaneous Approach (ICD-10-PCS; principal; 2021-06-14)
PROC: 3E033GC Introduction of Other Therapeutic Substance into Peripheral Vein, Percutaneous Approach (ICD-10-PCS; 2021-06-14)
DX: G43.909 Migraine, unspecified, not intractable, without status migrainosus (principal); R07.9 Chest pain, unspecified
CPT/HCPCS: 36415; 70450-TC; 71045-TC-FY; 80053; 80307; 84484; 85025; 93005; 96374; 96375; 99284-25; J0131

== ENCOUNTER 2021-08-13 10:00 | Emergency (ER) | payer OTHER ==
[2021-08-13 10:08] VITALS: BP 147/78; TEMP 97; BMI 29.8
[2021-08-13] MEDS ORDERED: SODIUM CHLORIDE 0.9% 500 ML INFUS.BAG IV ONE (10:54)
[2021-08-13] MEDS ORDERED: ACETAMINOPHEN 1000 MG/100 ML BAG IVPB ONE (10:54)
[2021-08-13] MEDS ORDERED: METOCLOPRAMIDE HCL INJECTION 10 MG/2 ML VIAL IVPUSH ONE (10:54)
[2021-08-13] MEDS ORDERED: ACETAMINOPHEN INJECTION 100 ML IVPB ONE (11:54)
[2021-08-13] MEDS ORDERED: METOCLOPRAMIDE HCL INJECTION 10 MG/2 ML VIAL ONE (11:54)
[2021-08-13 12:36] LABS: BASO % 0.5 % (0-2.0); EOS % 0.3 % (0-4.5); HEMATOCRIT 39.1 % (32.4-45.2); HEMOGLOBIN 12.9 GM/dL (10.7-15.3); LYMPH % 22.4 % (8-40); MCH 29.8 pg (25.7-33.7); MCHC 33.1 g/dl (32.0-36.0); MEAN PLT VOLUME 9.9 fl (7.5-11.1); MONO % 5.6 % (3.8-10.2); NEUT % 71.2 % (42.8-82.8); PLATELET COUNT 159 10^3/uL (134-434); RBC 4.34 M/mm3 (3.60-5.2); RDW 12.9 % (11.6-15.6); WHITE BLOOD COUNT 4.7 K/mm3 (4.0-10.0)
[2021-08-13 12:59] LABS: ALBUMIN 3.6 g/dl (3.4-5.0); CALCIUM 9.1 mg/dL (8.5-10.1)
[2021-08-13 13:00] LABS: BLOOD UREA NITROGEN 12.2 mg/dL (7-18)
[2021-08-13 13:02] LABS: CREATININE 0.6 mg/dL (0.55-1.3)
[2021-08-13 13:04] LABS: BILIRUBIN,TOTAL 0.3 mg/dL (0.2-1); TOT PROT 6.8 g/dl (6.4-8.2)
[2021-08-13 16:57] VITALS: PULSE 78
== END 2021-08-13 16:58 | disposition home or self-care (01) ==
LOC: JER 10:00
PROC: 3E033GC Introduction of Other Therapeutic Substance into Peripheral Vein, Percutaneous Approach (ICD-10-PCS; principal; 2021-08-13)
DX: R51.9 Headache, unspecified (principal)
CPT/HCPCS: 36415; 71275-TC; 74174-TC; 80053; 84484; 85025; 93005; 93010; 99285-25; Q9967

== ENCOUNTER 2023-02-19 09:45 | Emergency (ER) | payer OTHER ==
[2023-02-19 10:05] VITALS: RESP 16; BMI 29.5
[2023-02-19 10:09] VITALS: BP 148/93; PULSE 84; TEMP 98.8
== END 2023-02-19 10:28 | disposition home or self-care (01) ==
LOC: FER 09:45
DX: I10 Essential (primary) hypertension (principal); R42 Dizziness and giddiness; Z20.822 Contact with and (suspected) exposure to COVID-19
CPT/HCPCS: 0241U-QW; 99283-25

== ENCOUNTER 2023-07-17 21:28 | Emergency (ER) | payer OTHER ==
[2023-07-17 22:07] VITALS: BP 158/75; PULSE 72; RESP 16; TEMP 98.7; BMI 30.8
[2023-07-17 22:19] LABS: HEMATOCRIT 42.1 % (32.4-45.2); HEMOGLOBIN 13.6 G/dL (10.7-15.3); MCH 29.1 pg (25.7-33.7); MCHC 32.3 g/dl (32.0-36.0); MEAN CELL VOLUME 90.1 fl (80-96); MEAN PLT VOLUME 10.1 fl (7.5-11.1); PLATELET COUNT 149.8 10^3/uL (134-434); RBC 4.67 10^6/uL (3.60-5.2); RDW 14.2 % (11.6-15.6); WHITE BLOOD COUNT 5.5 10^3/uL (4.0-10.8)
[2023-07-17 22:25] LABS: PLATELET ESTIMATE ADEQUATE
[2023-07-17 22:37] LABS: ALBUMIN 4.6 g/dl (3.4-5.0); BILIRUBIN,TOTAL 0.3 mg/dl (0.2-1); CREATININE 0.6 mg/dl (0.6-1.3)
== END 2023-07-18 00:49 | disposition home or self-care (01) ==
LOC: FER 21:28
DX: R07.89 Other chest pain (principal); R00.2 Palpitations; R06.02 Shortness of breath
CPT/HCPCS: 36415; 80053; 84484; 85027; 93005; 93010; 99283-25

== ENCOUNTER 2024-01-31 15:31 | Emergency (ER) | payer OTHER ==
[2024-01-31 15:57] VITALS: BP 134/72; PULSE 74; RESP 15; TEMP 99.1; BMI 30.8
[2024-01-31 17:17] LABS: MCH 28.8 pg (25.7-33.7); MCHC 31.6 g/dl (32.0-36.0); MEAN CELL VOLUME 90.8 fl (80-96); MEAN PLT VOLUME 9.4 fl (7.5-11.1); PLATELET COUNT 169.5 10^3/uL (134-434); RBC 4.51 10^6/uL (3.60-5.2); RDW 14.5 % (11.6-15.6); WHITE BLOOD COUNT 4.5 10^3/uL (4.0-10.8)
[2024-01-31 17:27] LABS: PLATELET ESTIMATE ADEQUATE
[2024-01-31 17:29] LABS: INR 1.07 (0.83-1.09); PROTHROMBIN TIME (PATIENT) 12.2 SEC (9.7-13.0)
[2024-01-31 17:32] LABS: ACTIVATED PTT 32.7 SECONDS (25.2-36.5)
[2024-01-31 17:36] LABS: ALBUMIN 4.5 g/dl (3.4-5.0); BILIRUBIN,TOTAL 0.5 mg/dl (0.2-1); CREATININE 0.6 mg/dl (0.6-1.3); TOT PROT 7.1 g/dl (6.4-8.2)
[2024-01-31 19:07] LABS: N-TERMINAL BNP 45.8 pg/ml (5-125)
== END 2024-01-31 18:19 | disposition home or self-care (01) ==
LOC: SUPCPDRO 15:31 → FER 15:31
DX: R07.89 Other chest pain (principal); R06.00 Dyspnea, unspecified
CPT/HCPCS: 36415; 71046-TC-FY; 80053; 83880; 84484; 85027; 85379; 85610; 85730; 93005; 99285-25

== ENCOUNTER 2024-08-13 11:22 | Emergency (ER) | payer OTHER ==
[2024-08-13 11:35] VITALS: RESP 18; BMI 29.5
[2024-08-13 14:34] LABS: POTASSIUM 4.5 mmol/L (3.5-5.1)
[2024-08-13 14:36] LABS: CALCIUM 9.8 mg/dL (8.5-10.1)
[2024-08-13 14:37] LABS: ALBUMIN 4.2 g/dl (3.4-5.0); BLOOD UREA NITROGEN 12.4 mg/dL (7-18); MAGNESIUM 2.1 mg/dL (1.8-2.4)
[2024-08-13 14:40] LABS: CREATININE 0.6 mg/dL (0.55-1.3)
[2024-08-13 14:42] LABS: BILIRUBIN,TOTAL 0.6 mg/dL (0.2-1); TOT PROT 7.5 g/dl (6.4-8.2)
[2024-08-13 15:36] VITALS: BP 99/62; PULSE 69; TEMP 98
[2024-08-13 15:44] LABS: HIV INTERPRETATION NEGATIVE (NEGATIVE)
[2024-08-13 15:45] LABS: HCV DIAGNOSTIC IN-HOUSE W/RFLX NON-REACTIVE (NONREACTIVE)
[2024-08-13 15:47] LABS: ABSOLUTE IMMATURE GRANULOCYTES 0.01 x10^3/uL (0.0-0.031); BASOPHILS # 0.01 x10^3/uL (0.01-0.08); EOSINOPHIL % 0.2 % (0.7-5.8); EOSINOPHILS # 0.01 x10^3/uL (0.04-0.36); HEMATOCRIT 43.5 % (34.1-44.9); HEMOGLOBIN 14.1 g/dL (11.2-15.7); MCHC 32.4 g/dl (32.2-35.5); MEAN CELL VOLUME 90.1 fl (79.4-94.8); MEAN PLT VOLUME 11.2 fl (9.4-12.3); MONOCYTE % 4.3 % (4.7-12.5); PLATELET COUNT 190 x10^3/uL (182-369); RDW 12.1 % (12.3-16.6)
== END 2024-08-13 16:55 | disposition home or self-care (01) ==
LOC: JER 11:22
DX: R00.2 Palpitations (principal)
CPT/HCPCS: 36415; 71045-TC-FY; 80053; 80061; 83036; 83735; 84439; 84443; 84484; 84703; 85025; 86803; 87389; 93005; 93010; 99285-25